=== PATIENT | female | born 1930 | race Caucasian/White ===

== ENCOUNTER → 2016-08-21 | Outpatient (CLI) | payer MEDICARE, OTHER ==
[2016-08-21 11:24] LABS: MEAN CORPUSCULAR HEMOGLOBIN 29.6 PG (26.0-34.0); MEAN CORPUSCULAR HGB CONC 32.9 g/dL (31.0-37.0); MEAN CORPUSCULAR VOLUME 90 FL (80-100); MEAN PLATELET VOLUME 11.2 FL (6.0-9.5); PLATELET COUNT 133 10^3uL (150-450); WHITE BLOOD COUNT 5.39 10^3uL (4.0-11.0)
[2016-08-21 11:42] LABS: ALBUMIN 3.7 g/dL (3.4-5.0); ANION GAP 12.4 MEQ/L (3-15); CALCULATED IONIZED CALCIUM 4.1 mg/dL (3.8-4.6); TOTAL PROTEIN 6.7 g/dL (6.4-8.5)
[2016-08-21 11:44] LABS: BAND NEUTROPHILS % 1 % (0-6); EOSINOPHILS % 0 % (0-4); LYMPHOCYTES # 1.6 #; MONOCYTES # 0.8 #; MONOCYTES % 16 % (3-11); SEGMENTED NEUTROPHILS % 52 % (51-67); TOTAL CELLS COUNTED 100
[2016-08-21 11:45] LABS: RBC MORPH NORMAL (NORMAL)
== END ==
LOC: LAB 11:12
PROVIDERS: ATTEND Internal Medicine
DX: Z00.00 Encounter for general adult medical examination without abnormal findings (principal); E03.9 Hypothyroidism, unspecified; L50.1 Idiopathic urticaria; R74.0 Nonspecific elevation of levels of transaminase and lactic acid dehydrogenase [LDH]; E03.8 Other specified hypothyroidism
CPT/HCPCS: 36415; 80053; 80061; 84443; 85025

== ENCOUNTER → 2016-08-28 | Outpatient (CLI) | payer MEDICARE, OTHER ==
--- NOTE | 2016-08-28 12:39 | Diagnostic Imaging Report ---
INDICATION: 86-year-old postmenopausal female for screening osteoporosis. COMPARISON: 08/09/2014 TECHNIQUE: DEXA of the lumbar spine and bilateral hips was performed. FINDINGS: The L2-L4 vertebrae were used for assessment of the lumbar spine. The bone mineral density for the total lumbar spine is 1.087 g/cm2, and the T score is -0.9, and Z-score is 1.4. The left femoral neck has a bone density of 0.770 g/cm2, and the T score is -1.7, and Z-score is 0.7. The right femoral neck has a bone density of 0.732 g/cm2, and the T score is -2.1, and Z-score is 0.3. Since most recent bone mineral density performed 08/09/2014, there has been no statistically significant change in the bone mineral density in the lumbar spine or hips. IMPRESSION: 1. Osteopenia (low bone mass). 2. No significant change in bone mineral density since 2015 examination. Dictated by: Dictated on workstation # [id number]
== END ==
LOC: RAD 10:35
PROVIDERS: ATTEND Internal Medicine
DX: Z78.0 Asymptomatic menopausal state (principal); M85.89 Other specified disorders of bone density and structure, multiple sites
CPT/HCPCS: 77080